=== PATIENT | female | born 1970 | race Caucasian/White ===

== ENCOUNTER 2024-07-25 18:49 | Emergency (ER) | payer BC ==
[~2024-07-25] VITALS: Ht 170.2 cm; Wt 64.0 kg
[2024-07-25 18:58] VITALS: O2SAT 98
[2024-07-25 21:19] LABS: HEMATOCRIT. 46.1 % (36.0-48.0); MEAN CORPUSCULAR HEMOGLOBIN 30.5 pg (28.0-32.0); MEAN CORPUSCULAR HGB CONC 32.5 g/dL (31.0-37.0); MEAN CORPUSCULAR VOLUME 93.7 fL (81.0-99.0); MEAN PLATELET VOLUME 9.9 fl (7.4-10.4); PLATELET 223 x1000/uL (130-400); RED BLOOD CELL COUNT 4.92 mill/uL (4.2-5.4); RED CELL DISTRIBUTION WIDTH 13.6 % (11.6-14.6); WHITE BLOOD COUNT 7.8 x1000/uL (4.5-11.0)
[2024-07-25 21:20] LABS: DIFFERENTIAL COMMENT 1
[2024-07-25 21:21] LABS: CHLORIDE 107 mEq/L (98-107); POTASSIUM 4.1 mEq/L (3.5-5.1); SODIUM 140 mEq/L (136-145)
[2024-07-25 21:22] LABS: CALCIUM 9.4 mg/dL (8.7-10.4); CARBON DIOXIDE 24 mEq/L (21-32)
[2024-07-25 21:27] LABS: CREATININE 0.9 mg/dL (0.6-1.0); GLUCOSE 140 mg/dL (70-105); UREA NITROGEN BLOOD 16 mg/dL (9-23)
[2024-07-25 21:29] LABS: ALANINE AMINOTRANSFERASE 25 IU/L (10-49); ALBUMIN 4.4 g/dL (3.2-4.8); ASPARTATE AMINOTRANSFERASE 21 IU/L (<34); BILIRUBIN TOTAL 1.2 mg/dL (0.1-1.0); PROTEIN TOTAL 7.4 g/dL (6.0-8.3)
[2024-07-25] MEDS: ACETAMINOPHEN 325MG TABLET PO ONE (21:47)
[2024-07-25] MEDS: KETOROLAC 30MG/ML VIAL IM ONE (21:47)
[2024-07-25] MEDS: ONDANSETRON 4MG ODT PO ONE (21:47)
[2024-07-25 23:31] LABS: PLATELET ESTIMATE NORMAL
[2024-07-25] MEDS ORDERED: ONDA-239 PO (23:52)
[2024-07-26 00:22] VITALS: BP 105/61; PULSE 75; RESP 20; TEMP 36.78072; O2SAT 97
== END 2024-07-26 00:26 | disposition home or self-care (01) ==
LOC: ER 18:49
DX: B34.9 Viral infection, unspecified (principal); K52.9 Noninfective gastroenteritis and colitis, unspecified
CPT/HCPCS: 99283; 80053; 83690; 85025; 87804 ×2; 36415; 96372; Q0162; J1885